=== PATIENT | male | born 1995 | race African-American/Black ===

== ENCOUNTER 2016-08-02 18:09 | Emergency (ER) | payer SELFPAY ==
[~2016-08-02] VITALS: Ht 180.3 cm; Wt 69.5 kg
[~2016-08-02 18:09] MED LIST: MEDROL8 M1 PO; TRIAMCINOLONE A15 GM TP
[2016-08-02 18:12] VITALS: BP 139/65; TEMP 97.8
[2016-08-02] MEDS ORDERED: DESONATE TOP (18:50)
[2016-08-02] MEDS ORDERED: ATARAX 25MG25 MG/TAB PO (18:51)
[2016-08-02 19:13] VITALS: PULSE 60
== END 2016-08-02 19:14 | disposition home or self-care (01) ==
LOC: COL.ER 18:09
DX: L20.9 Atopic dermatitis, unspecified (principal)

== ENCOUNTER 2016-10-16 21:25 | Emergency (ER) | payer SELFPAY ==
[~2016-10-16] VITALS: Ht 180.3 cm; Wt 69.5 kg
[~2016-10-16 21:25] MED LIST changes: +ATARAX 25MG25 MG/TAB PO; +DESONATE TOP
[2016-10-16 21:38] VITALS: BP 139/64; TEMP 98.4
[2016-10-16] MEDS ORDERED: RT ADVAIR 228 DISKUS IH (21:41)
[2016-10-16] MEDS ORDERED: PREDNISONE20 MG PO (22:38)
[2016-10-16 22:54] VITALS: PULSE 99
== END 2016-10-16 22:54 | disposition home or self-care (01) ==
LOC: COL.ER 21:25
DX: L30.9 Dermatitis, unspecified (principal); J45.909 Unspecified asthma, uncomplicated
CPT/HCPCS: J7512

== ENCOUNTER 2016-12-20 16:04 | Emergency (ER) | payer SELFPAY ==
[~2016-12-20] VITALS: Ht 180.3 cm; Wt 69.5 kg
[~2016-12-20 16:04] MED LIST changes: +PREDNISONE20 MG PO; +RT ADVAIR 228 DISKUS IH
[2016-12-20 16:05] VITALS: BP 130/77; TEMP 96.9
[2016-12-20] MEDS ORDERED: PREDNISONE20 MG PO (16:30)
[2016-12-20 16:35] VITALS: PULSE 68
== END 2016-12-20 16:36 | disposition home or self-care (01) ==
LOC: COL.ER 16:04
DX: L30.9 Dermatitis, unspecified (principal); J45.909 Unspecified asthma, uncomplicated

== ENCOUNTER 2017-04-07 19:56 | Emergency (ER) | payer SELFPAY ==
[~2017-04-07] VITALS: Ht 180.3 cm; Wt 72.7 kg
[2017-04-07 20:01] VITALS: PULSE 82; TEMP 98.9
[2017-04-07] MEDS ORDERED: MEDROL 4MG DOSPA4 MG PO (20:30)
[2017-04-07] MEDS ORDERED: NORCO 325 MG-51 TAB PO (20:30)
[2017-04-07] MEDS ORDERED: CEPHALEXIN500 M1 PO (20:30)
[2017-04-07] MEDS ORDERED: TRIAM OI 0.1 80 TOP (20:37)
== END 2017-04-07 20:54 | disposition home or self-care (01) ==
LOC: COL.ER 19:56
DX: L20.9 Atopic dermatitis, unspecified (principal); J45.909 Unspecified asthma, uncomplicated
CPT/HCPCS: J7512

== ENCOUNTER 2017-06-22 15:03 | Emergency (ER) | payer SELFPAY ==
[~2017-06-22] VITALS: Ht 180.3 cm; Wt 69.5 kg
[~2017-06-22 15:03] MED LIST changes: +CEPHALEXIN500 M1 PO; +MEDROL 4MG DOSPA4 MG PO; +NORCO 325 MG-51 TAB PO; +TRIAM OI 0.1 80 TOP
[2017-06-22 15:08] VITALS: BP 140/92; PULSE 63; TEMP 98.1
[2017-06-22] MEDS ORDERED: PREDNISONE20 MG PO (16:21)
[2017-06-22] MEDS ORDERED: TRIAMCINOLONE A15 GM TP (16:21)
== END 2017-06-22 16:31 | disposition home or self-care (01) ==
LOC: COL.ER 15:03
DX: L30.9 Dermatitis, unspecified (principal)

== ENCOUNTER 2017-08-21 17:35 | Emergency (ER) | payer SELFPAY ==
[~2017-08-21] VITALS: Ht 180.3 cm; Wt 72.7 kg
[2017-08-21 17:44] VITALS: BP 189/84; TEMP 97.5
[2017-08-21] MEDS ORDERED: PREDNISONE20 MG PO (18:07)
[2017-08-21 18:41] VITALS: PULSE 103
== END 2017-08-21 18:16 | disposition home or self-care (01) ==
LOC: COL.ER 17:35
DX: L30.9 Dermatitis, unspecified (principal); J45.909 Unspecified asthma, uncomplicated

== ENCOUNTER 2017-10-14 20:09 | Emergency (ER) | payer SELFPAY ==
[~2017-10-14] VITALS: Ht 180.3 cm; Wt 69.5 kg
[2017-10-14 20:11] VITALS: BP 168/91; TEMP 98.3
[2017-10-14] MEDS ORDERED: CEPHALEXIN500 M1 PO (20:50)
[2017-10-14] MEDS ORDERED: PREDNISONE20 MG PO (20:50)
[2017-10-14 21:01] VITALS: PULSE 80
[2017-10-14] MEDS ORDERED: NORCO 325 MG-51 TAB PO (21:05)
== END 2017-10-14 21:07 | disposition home or self-care (01) ==
LOC: COL.ER 20:09
DX: L30.9 Dermatitis, unspecified (principal); J45.909 Unspecified asthma, uncomplicated

== ENCOUNTER 2017-11-06 01:33 | Emergency (ER) | payer SELFPAY ==
[~2017-11-06] VITALS: Ht 180.3 cm; Wt 72.7 kg
[2017-11-06 01:36] VITALS: TEMP 99.4
[2017-11-06] MEDS ORDERED: PREDNISONE10 MG PO (03:36)
[2017-11-06 04:20] VITALS: BP 144/100; PULSE 108
== END 2017-11-06 04:20 | disposition home or self-care (01) ==
LOC: COL.ER 01:33
DX: L23.5 Allergic contact dermatitis due to other chemical products (principal); J45.909 Unspecified asthma, uncomplicated; Z79.891 Long term (current) use of opiate analgesic; Z87.2 Personal history of diseases of the skin and subcutaneous tissue
CPT/HCPCS: J1200; J2930; J3010; J7030